=== PATIENT | male | born 1955 | race Caucasian/White ===

== ENCOUNTER 2023-10-22 06:12 | Day surgery (SDC) | payer OTHER, BC ==
[2023-10-20 10:10] VITALS: BMI 25.7
[2023-10-22 06:48] VITALS: TEMP 97.7
[2023-10-22] MEDS ORDERED: PROPOFOL 40 ML ONE (07:11)
[2023-10-22] MEDS ORDERED: LIDOCAINE HCL/PF 2% SDV 5ML VIAL ONE (07:11)
[2023-10-22] MEDS ORDERED: MIDAZOLAM HCL 2 MG/2 ML SINGLE DOSE VIAL ONE (07:11)
[2023-10-22] MEDS ORDERED: LIDOCAINE HCL 2% (20ML MULTI-DOSE VIAL) ONE (07:14)
[2023-10-22 08:22] VITALS: RESP 18
[2023-10-22 08:48] VITALS: BP 113/63; PULSE 73
== END 2023-10-22 08:50 | disposition home or self-care (01) ==
LOC: FASU 06:12
PROVIDERS: ATTEND Orthopaedic Surgery Hand Surgery
PROC: 01N50ZZ Release Median Nerve, Open Approach (ICD-10-PCS; principal; 2023-10-22 07:54)
DX: G56.02 Carpal tunnel syndrome, left upper limb (principal)